=== PATIENT | female | born 1950 | race Caucasian/White ===

== ENCOUNTER → 2016-05-05 | Outpatient (CLI) | payer MEDICARE, OTHER ==
[~2016-05-05] MED LIST: ALEN70SO3 PO; HYDR-3816 PO; LEVO100T7 PO; METF500T4 PO; PRD20T PO; ROSU5TAB PO
--- OUTSIDE RECORDS SUMMARY | 2016-05-05 10:31 | XMS REPORT | Continuity of Care Document ---
Author Author [facility] Organization [facility] Address Unknown Phone Unavailable Care Team Providers Care Slate Mixer Name Role Phone KAILA CORTEZ DO PCP Insurance Providers Payer Name Policy Number Subscriber Name Relationship [facility] [id number] Javad Barr D 01 Problems No known problems or medical conditions. Medications No known medications. Social History Social History Problem Response Recorded Date/Time Recent Foreign Travel No 04/02/2014 10:01am Hospital Discharge Instructions No hospital discharge instructions. Plan of Care No plan of care. Functional Status No functional status results. Allergies, Adverse Reactions, Alerts No known allergies. Immunizations No immunization records. Vital Signs Acute Vital Signs Vital Response Date/Time Height 5 ft 4 in Weight 257 lb Body Mass Index 44.1 kg/m^2 Results No known relevant diagnostic tests, laboratory data and/or discharge summary. Procedures No known history of procedures. Encounters Encounter Location Date/Time Discharged Recurring [facility] 04/28/14 6:00pm
--- NOTE | 2016-05-05 14:42 | Diagnostic Imaging Report ---
EXAMINATION: DEXA scan. INDICATION: Osteopenia TECHNIQUE: Bone mineral density estimated based on dual energy radiography over the lumbar spine and femoral necks, was performed. FINDINGS: The lumbar spine T-score is 0.1. T score over the left femoral neck is 0.6 and over the right is 0.4. IMPRESSION: Bone mineral density within the normal range. Dictated by: Dictated on workstation # [id number]
== END ==
LOC: RAD 10:28
PROVIDERS: ATTEND Family Medicine
DX: M81.0 Age-related osteoporosis without current pathological fracture (principal)
CPT/HCPCS: 77080

== ENCOUNTER 2017-11-06 20:00 | Outpatient (CLI) | payer MEDICARE, OTHER ==
[~2017-11-06 20:00] MED LIST changes: +HYDR-34 PO; -HYDR-3816 PO; -METF500T4 PO; +METF500T5 PO
== END 2017-11-07 06:39 | disposition home or self-care (01) ==
LOC: SLEEP 20:00
PROVIDERS: ATTEND Nurse Practitioner Family
DX: G47.33 Obstructive sleep apnea (adult) (pediatric) (principal)
CPT/HCPCS: 95811

== ENCOUNTER → 2019-01-28 | Outpatient (CLI) | payer MEDICARE, OTHER ==
[~2019-01-28] MED LIST changes: +METF-397 PO; -METF500T5 PO
--- NOTE | 2019-01-28 16:30 | Diagnostic Imaging Report ---
PROCEDURE: US Thyroid. TECHNIQUE: Multiple real-time grayscale images were obtained of the thyroid in various projections. INDICATION: Palpable abnormality. FINDINGS: The right lobe of the thyroid measures 5.3 x 3.4 x 3.7 cm. There is a large heterogeneous nodule on the right measuring 4.2 x 2.9 x 3.2 cm. Left lobe of the thyroid measures 4.5 x 2.2 x 1.9 cm. Largest nodule on the left measures 0.9 x 0.8 cm. Subsequently, there are 0.8 and 0.5 cm nodules as well. IMPRESSION: Dominant nodule in the right lobe of thyroid measuring up to 4.2 cm. Further evaluation with fine-needle aspiration is recommended to exclude malignancy. Dictated by: Dictated on workstation # [id number]
== END ==
LOC: RAD 14:45
PROVIDERS: ATTEND Otolaryngology Otolaryngology/Facial Plastic Surgery
DX: E04.1 Nontoxic single thyroid nodule (principal)
CPT/HCPCS: 76536

== ENCOUNTER → 2019-02-11 | Outpatient (CLI) | payer MEDICARE, OTHER ==
[~2019-02-11] VITALS: Ht 160 cm; Wt 113.6 kg
[~2019-02-11] MED LIST changes: +LIDOCAINE 1% INJ 20 ML 20 ML VIAL INJ ONE; +LIDOCAINE 1% INJ 20 ML 20 ML VIAL ONE
--- NOTE | 2019-02-11 13:55 | Diagnostic Imaging Report ---
INDICATION: Right thyroid nodule. Patient presents for ultrasound-guided fine-needle aspiration. Patient was brought to the procedure room and placed on the table in a supine position. Ultrasound imaging over the right neck was performed to evaluate appropriate entry site. The right neck was then prepped and draped in usual sterile fashion. A small amount of 1% lidocaine was utilized for local anesthesia. A total of four passes were made into the dominant nodule in the right lobe of the thyroid utilizing 25-gauge needles. A fine-needle aspiration technique was performed. Hemostasis was obtained using manual compression. Patient tolerated the procedure well and left the department in stable condition. IMPRESSION: Successful ultrasound-guided fine-needle aspiration of right thyroid nodule. Pathology results are currently pending. Dictated by: Dictated on workstation # [id number]
== END ==
LOC: RAD 11:11
PROVIDERS: ATTEND Otolaryngology Otolaryngology/Facial Plastic Surgery
DX: E04.1 Nontoxic single thyroid nodule (principal)
CPT/HCPCS: 76942; 88173; 88305

== ENCOUNTER → 2020-02-17 | Outpatient (CLI) | payer MEDICARE, OTHER ==
[~2020-02-17] MED LIST changes: -LIDOCAINE 1% INJ 20 ML 20 ML VIAL INJ ONE; -LIDOCAINE 1% INJ 20 ML 20 ML VIAL ONE
== END ==
LOC: CARD 09:12
PROVIDERS: ATTEND Internal Medicine Cardiovascular Disease
DX: E78.2 Mixed hyperlipidemia (principal)
CPT/HCPCS: 93306

== ENCOUNTER → 2020-02-19 | Outpatient (CLI) | payer MEDICARE, OTHER ==
[~2020-02-19] VITALS: Ht 160 cm; Wt 113.0 kg
[~2020-02-19] MED LIST changes: +CATHETER FLUSH 10 ML SYR IV PRN
[2020-02-19 09:27] VITALS: BP 142/82
--- NOTE | 2020-02-19 15:15 | Cardiology Stress Test Report ---
Stress Test Report Date of Procedure/Referring: Date of Procedure: Feb 19, 2020 PCP Nadira Mackenzie MD Admitting Physician Robbin Regalado DO Indications: Coronary artery disease Baseline Heart Rate: 57 Baseline Blood Pressure: Blood Pressure Systolic: 142 Blood Pressure Diastolic: 82 Vital Signs Date Time Temp Pulse Resp B/P (MAP) Pulse Ox O2 Delivery O2 Flow Rate FiO2 02/19/20 09:27 57 142/82 (102) Baseline Vital Signs Vital Signs Date Time Temp Pulse Resp B/P (MAP) Pulse Ox O2 Delivery O2 Flow Rate FiO2 02/19/20 09:27 57 142/82 (102) Baseline EKG: Baseline EKG: normal sinus rhythm Summary: After explaining the procedure and details to the patient, she signed the consent and was brought to the stress nuclear laboratory. Patient exercised on standard Anthony protocol, EKG, heart rate and blood pressure were monitored continuously, resting and stress doses of radio tracer were injected, imaging was acquired and reviewed in the short axis, horizontal long axis and vertical long axis views Patient was able to exercise for a total of 5:15 minutes on Anthony protocol, METs 6.4 Maximum heart rate 129 Maximum blood pressure 211/86 Stress EKG, Minimal nondiagnostic changes Recovery EKG, Return to baseline TID: 0.92 SSS: 11 SDS: 8 EF: 71 Conclusion: 1. Fair exercise tolerance for a total of 5 minutes 15 seconds on standard Anthony protocol achieving 86 percent of maximum expected heart rate, total of 6.4 minutes 2. Severe hypertensive response to exercise with peak blood pressure 211/86 return to baseline during recovery 3. Minimal nondiagnostic EKG changes with exercise returned to baseline during recovery 4. Reversible ischemia involving the whole anterior wall and anterolateral wall neck/5. Normal left ventricular size, EF 71 percent NADIRA MACKENZIE MD Feb 19, 2020 15:15
== END ==
LOC: CARD 08:30
PROVIDERS: ATTEND Internal Medicine Cardiovascular Disease
DX: E78.2 Mixed hyperlipidemia (principal)
CPT/HCPCS: 78452; 93017; A9502

== ENCOUNTER 2020-04-08 07:44 | Day surgery (SDC) | payer MEDICARE, OTHER ==
[~2020-04-08] VITALS: Ht 161 cm; Wt 115.1 kg
[~2020-04-08 07:44] MED LIST changes: -CATHETER FLUSH 10 ML SYR IV PRN
[2020-04-08] MEDS ORDERED: NS IV 1000 ML 1,000 ML ONE (07:46)
[2020-04-08] MEDS ORDERED: LIDOCAINE 1% INJ 20 ML 20 ML VIAL ONE (07:46)
[2020-04-08] MEDS ORDERED: HEParin (CATH LAB) 2,000 ML IV ONE (07:46)
[2020-04-08] MEDS ORDERED: NS IV 1000 ML 1,000 ML IV SCH (08:00)
[2020-04-08 08:13] VITALS: BP 174/81
[2020-04-08 08:18] LABS: HEMOGLOBIN 14.5 g/dL (11.5-16.0); MEAN PLATELET VOLUME 8.9 fL (9.0-12.2); WHITE BLOOD COUNT 8.3 10^3/uL (4.3-11.0)
[2020-04-08 08:30] LABS: BILIRUBIN,URINE NEGATIVE (NEGATIVE); CLARITY,URINE CLEAR; COLOR,URINE YELLOW; GLUCOSE, URINE (UA) NEGATIVE (NEGATIVE); KETONES,URINE NEGATIVE (NEGATIVE); LEUKOCYTE ESTERASE ,URINE NEGATIVE (NEGATIVE); NITRITE,URINE NEGATIVE (NEGATIVE); PROTEIN,URINE NEGATIVE (NEGATIVE)
--- NOTE | 2020-04-08 08:30 | Diagnostic Imaging Report ---
INDICATION: Coronary artery disease Single AP view of the chest is obtained. COMPARISON: No previous study is available for comparison at this time. FINDINGS: Heart size and pulmonary vasculature are within normal limits, and the lungs are clear, bilaterally. There is degenerative spurring at the acromioclavicular joints, greater on the right. IMPRESSION: Unremarkable chest. Dictated by: Dictated on workstation # [id number]
[2020-04-08 08:33] LABS: PROTHROMBIN TIME PATIENT 13.1 SEC (12.2-14.7)
[2020-04-08 08:39] LABS: BACTERIA,URINE FEW /HPF; WBC,URINE RARE /HPF
[2020-04-08 08:55] LABS: ALBUMIN 4.1 GM/DL (3.2-4.5); BILIRUBIN,TOTAL 0.5 MG/DL (0.1-1.0); CALCIUM 9.3 MG/DL (8.5-10.1); CREATININE SERUM 1.01 MG/DL (0.60-1.30); POTASSIUM 3.9 MMOL/L (3.6-5.0); TOTAL PROTEIN 7.8 GM/DL (6.4-8.2)
[2020-04-08] MEDS ORDERED: ALEN70TA69 PO (09:26)
[2020-04-08] MEDS ORDERED: MELO15TA39 PO (09:26)
[2020-04-08] MEDS ORDERED: CHOL100048 PO (09:26)
[2020-04-08] MEDS ORDERED: ASPI-1238 PO (09:26)
[2020-04-08] MEDS ORDERED: METO-351 PO (09:26)
[2020-04-08] MEDS ORDERED: ATOR10TA66 PO (09:26)
[2020-04-08] MEDS ORDERED: LISI10TA2 PO (09:26)
[2020-04-08] MEDS ORDERED: LEVO100T7 PO (09:26)
--- NOTE | 2020-04-08 09:43 | NUR ---
SPOKE WITH THE PT AND CALLED [facility] TO COMPLETE THE MED REC THE FOLLOWING ARE FILL DATES FROM [facility]: 11-04-2019 MELOXICAM 15MG #90/90DS 01-15-2020 METFORMIN 500MG #360/90DS 01-15-2020 ATORVASTATIN 10MG #90/90DS 01-15-2020 LISINOPRIL 10MG #90/90DS 02-06-2020 LEVOTHYROXINE 100MCG #90/90DS 03-17-2020 ALENDRONATE 70MG #4/28DS 03-23-2020 METOPROLOL ER 25MG #30/30DS OTC MEDs: VIT D ASPIRIN 81
[2020-04-08] MEDS ORDERED: VERAPAMIL 5 MG/2 ML (CALAN) VIAL IV ONE (09:47)
[2020-04-08] MEDS ORDERED: NITRO DRIP 25000 MCG/D5W 250 ML IV ONE (09:47)
[2020-04-08] MEDS ORDERED: MIDAZOLAM 5 MG/5 ML (VERSED) VIAL ONE (09:47)
[2020-04-08] MEDS ORDERED: fentaNYL INJECTION 100 MCG/2 ML AMP ONE (09:47)
[2020-04-08] MEDS ORDERED: HEParin 1000 UNIT/ML (10ML VIAL) FOR BOLUS ONE (09:47)
--- NOTE | 2020-04-08 10:07 | Cardiac Procedure Note-CS/ASA ---
Pre-Procedure Note Pre-Op Procedure Note H&P Reviewed The H&P was reviewed, patient examined and no changes noted. Date H&P Reviewed: Apr 08, 2020 Time H&P Reviewed: 10:07 Conscious Sedation Pre-Proced Time 10:07 ASA Score 3 For ASA 3 and 4: Consider anesthesia and medical clearance. Also, for patients with a history of failed moderate sedation consider anesthesia. Airway Lungs Heart ASA score ASA 1: a normal healthy patient ASA 2: a patient with a mild systemic disease (mid diabetes, controlled hypertension, obesity x ASA 3: a patient with a severe systemic disease that limits activity (angina, COPD, prior Myocardial infarction) ASA 4: a patient with an incapacitating disease that is a constant threat to life (CHF, renal failure) ASA 5: a moribund patient not expected to survive 24 hrs. (ruptured aneurysm) ASA 6: a declared brain- patient whose organs are being harvested. For emergent operations, add the letter E after the classification Mallampati Classification Grade 3 Sedation Plan Analgesia, Amnesia, Plan communicated to team members, Discussed options with patient/fam, Discussed risks with patient/fam The patient is an appropriate candidate to undergo the planned procedure, sedation, and anesthesia. The patient immediately re-assessed prior to indication. NADIRA HERNADEZ MD Apr 08, 2020 10:07
[2020-04-08] MEDS ORDERED: TICAGRELOR 90 MG TABLET (BRILINTA) PO ONE (11:02)
[2020-04-08] MEDS ORDERED: ASPIRIN 325 MG (5 GR) TABLET ONE (11:02)
[2020-04-08] MEDS ORDERED: NON-FORMULARY MEDICATION 1 EA EA (Alendronate Sodium 70 MG) PO SCH (11:30)
--- NOTE | 2020-04-08 11:33 | Cardiac Cath Report ---
Cardiac Cath Report Physician (s)/Case Picker (s) Physician NADIRA HERNADEZ MD Pre-Procedure Diagnosis Pre-Procedure Diagnosis: coronary artery disease Post-Procedure Note Procedure Start Date: Apr 08, 2020 Name of Procedure: Left heart catheterization Stent to the circumflex artery Findings/Procedure Note PROCEDURE NOTE: 69-year-old lady with history of hypertension, hyperlipidemia and diabetes mellitus, having chest pain, had an abnormal stress test, scheduled for cardiac catheterization possible PTCA. After explaining the procedure to the patient, all pros and cons were explained, all questions were answered. The patient signed the consent and then she was placed on the cardiac catheterization laboratory. Groin was prepped SL fashion local anesthesia was used. Sheath placed in the right radial artery, Crosby catheter advanced to the left ventricular cavity, pressure was measured, pullback to the aorta, angiogram was done which showed severe stenosis in the circumflex artery, intervention was initiated. Patient received a total of 6000 units of heparin, EBU guide was advanced to the left main coronary artery, BMW wire was advanced to the distal circumflex artery, had 95 percent stenosis in the mid circumflex artery, primary stenting using Eladia 3 x 12 mm, significant resistance was noted in the lesion. I used postdilatation with NC treck 3.5 x 12 mm expanded to 3.4 mm under 10 shine with excellent results At the end of the procedure the sheath was removed. Closure device was used FINDINGS: Hemodynamics LV 149/17, end-diastolic pressure of 17 Aorta 161/74 mean of 109 ANATOMY: Left Main is free of obstructive disease Left Anterior Descending has mild disease nonobstructive disease Left Circumflex has 95 percent stenosis in the midportion with successful primary stenting using Eladia 3 x 12 mm stent expanded to 3.4 mm using a noncompliant balloon Right Coronory Artery is moderate in size with 40-50 percent stenosis proximally nonobstructive disease LV Gram was not done, pressure was measured CONCLUSION: 1. Severe stenosis in the midcircumflex artery with primary stenting using Sier ra 3 x 12 mm expanded to 3.4 mm with excellent results 2. 40-50 percent stenosis in the proximal right coronary artery nonobstructive disease 3. Mild disease in the LAD nonobstructive disease 4. Normal left ventricular end-diastolic pressure DISCUSSION AND RECOMMENDATION: Patient was started on aspirin and Brilinta, hold metformin for the next 48 hours, increase Lipitor to 20 mg daily. Arrange for follow-up as an outpatient Anesthesia Type: Conscious Sedation Estimated blood loss (mL): 30 ml Contrast Amount: 116 ml Total Radiation Dose: 1270 mGy Post-Procedure Diagnosis Post-operative diagnosis: Coronary artery disease Hypertension Hyperlipidemia Diabetes mellitus NADIRA HERNADEZ MD Apr 08, 2020 11:33
[2020-04-08 12:14] VITALS: BP 147/79
[2020-04-08] MEDS: NS IV 1000 ML 1,000 ML IV SCH ×2 (13:47→21:43)
[2020-04-08 15:03] VITALS: BP 131/71
[2020-04-08 16:00] VITALS: BP 131/71
[2020-04-08 20:00] VITALS: BP 165/75
[2020-04-08] MEDS: TICAGRELOR 90 MG TABLET (BRILINTA) PO SCH (21:17)
[2020-04-09] VITALS: BP 154/63
[2020-04-09 03:26] LABS: HEMOGLOBIN 13.1 g/dL (11.5-16.0); MEAN PLATELET VOLUME 9.2 fL (9.0-12.2)
[2020-04-09 03:40] LABS: ALBUMIN 3.6 GM/DL (3.2-4.5); CHLORIDE 110 MMOL/L (98-107); POTASSIUM 3.9 MMOL/L (3.6-5.0); SODIUM 141 MMOL/L (135-145)
[2020-04-09 03:41] LABS: CALCIUM 8.4 MG/DL (8.5-10.1)
[2020-04-09 03:42] LABS: GLUCOSE 140 MG/DL (70-105)
[2020-04-09 03:43] LABS: TOTAL PROTEIN 6.7 GM/DL (6.4-8.2)
[2020-04-09 03:44] LABS: CARBON DIOXIDE 19 MMOL/L (21-32)
[2020-04-09 03:45] LABS: BILIRUBIN,TOTAL 0.4 MG/DL (0.1-1.0)
[2020-04-09 03:46] LABS: ALKALINE PHOSPHATASE 56 U/L (40-136); CREATININE SERUM 0.89 MG/DL (0.60-1.30); GFR ESTIMATED > 60
[2020-04-09 03:47] LABS: BUN/CREATININE RATIO 17
[2020-04-09 03:49] LABS: ALANINE AMINOTRANSFERASE 18 U/L (0-55)
[2020-04-09 04:00] VITALS: BP 159/71
[2020-04-09] MEDS ORDERED: LEVOTHYROXINE 100 MCG (LEVOTHROID) TAB PO SCH (06:30)
[2020-04-09] MEDS ORDERED: TICA90TA PO (06:47)
[2020-04-09] MEDS ORDERED: METF-397 PO (06:47)
[2020-04-09] MEDS ORDERED: ATOR20TA66 PO (06:47)
--- NOTE | 2020-04-09 06:49 | Discharge Inst-Post CATH ---
Discharge Inst-CATH/EP Post Cardiac Cath/EP D/C Inst Follow Up/Plan Hold Metfromin for [address] Mackenzie in 2-4 weeks <b>CARDIAC CATH/EP PROCEDURE DISCHARGE INSTRUCTIONS</b> ACTIVITY * Go Home directly and rest. * Limit activity of the leg (or wrist if it was used) for 7 days including aerobics, swimming, jogging, bicycling, etc. * Restrict stair-climbing for 7 days if possible, if not, climb up with your non-cath leg, then bring together on the same step. * Avoid lifting, pushing, pulling or excessive movement of the affected extremity for 7 days. * Customary sexual activity may be resumed after 2 days-use caution not to use a position that strains or causes pain to the affected extremity. * No driving for 24 hours. * NO SMOKING. * Avoid straining for bowel movements for 7 days. * Gentle walking on level ground is allowed. * Returning to work will depend on the type of procedure and the results. Your doctor will discuss this with you. CALL YOUR DOCTOR FOR ANY OF THE FOLLOWING: *If bleeding from the puncture site occurs- Apply gentle pressure to site with clean cloth and call your doctor or EMS. * If a knot or lump forms under the skin, increases in size, or causes pain. * If bruising appears to be worsening or moving further down your leg instead of disappearing. * Temperature above 101 F. CARE OF YOUR GROIN INCISION; * Bruising or purple discoloration of the skin near the puncture site is common. * You may shower only, no bathtub bathing for 5 days. Be careful to avoid slipping as your leg may feel stiff. * If a closure device was used on your femoral artery, please see the attached guide regarding care of the device and your leg. * Leave dressing on FOR 24 hours. CARE OF YOUR WRIST INCISION; * Bruising or purple discoloration of the skin near the puncture site is common. * You may shower. * DO NOT submerge wrist. * Leave dressing on FOR 24 hours. NADIRA MACKENZIE MD Apr 09, 2020 06:49
[2020-04-09] MEDS: NS IV 1000 ML 1,000 ML IV SCH (06:58)
[2020-04-09] MEDS: TICAGRELOR 90 MG TABLET (BRILINTA) PO SCH (08:15)
[2020-04-09] MEDS ORDERED: lisINopril 10 MG (PRINIVIL) TABLET PO SCH (09:00)
[2020-04-09] MEDS ORDERED: ASPIRIN E.C. 81 MG (ECOTRIN) TAB PO SCH (09:00)
--- NOTE | 2020-04-09 09:25 | Cardiology Progress Note ---
Subjective Date Seen by Provider: Apr 09, 2020 Time Seen by Provider: 09:24 Subjective/Events-last exam patient was seen at bedside, laying down comfortably, denied any chest pain Review of Systems General: No Chills, No Night Sweats, No Fatigue, No Malaise, No Appetite, No Other HEENT: No Head Aches, No Visual Changes, No Eye Pain, No Ear Pain, No Dysphasia, No Sinus Congestion, No Post Nasal Drip, No Sore Throat, No Other Pulmonary: No Dyspnea, No Cough, No Pleuritic Chest Pain, No Other Cardiovascular: No: Chest Pain, Palpitations, Orthopnea, Paroxysmal Noc. Dyspnea, Edema, Lt Headedness, Other Objective-Cardiology Exam Last Set of Vital Signs Vital Signs 04/09/20 04:00 Temp 36.9 Pulse 58 Resp 16 B/P (MAP) 159/71 (100) Pulse Ox 97 O2 Delivery NIV CPAP Capillary Refill : Less Than 3 Seconds I&O Intake and Output 04/09/20 00:00 Intake Total 1150 ml Output Total 1 ml Balance 1149 ml Intake Oral 1150 ml Output Stool Total 1 ml # Voids 5 # Bowel Movements 1 Daily Weight Change No General: Alert, Oriented X3, Cooperative HEENT: Atraumatic, PERRLA Neck: Supple, No JVD, No Thyromegaly Lungs: Clear to Auscultation, Normal Air Movement Heart: Regular Rate, Normal S1, Normal S2, No Murmurs Abdomen: Normal Bowel Sounds, Soft, No Tenderness, No Hepatosplenomegaly, No Masses Extremities: No Clubbing, No Cyanosis, No Edema, Normal Pulses, No Tenderness/Swelling Skin: No Rashes, No Breakdown, No Significant Lesion Neuro: Normal Gait, Normal Speech, Strength at 5/5 X4 Ext, Normal Tone, Sensation Intact Psych/Mental Status: Mental Status NL, Mood NL Results Lab Laboratory Tests 04/09/20 03:17 A/P-Cardiology Admission Diagnosis Coronary artery disease Hypertension Hyperlipidemia Diabetes mellitus Assessment/Plan Coronary artery disease, status post stent to the circumflex artery, site is healing well. No chest pain. Hypertension restarted on oral medication, monitor blood pressure next Hyperlipidemia increase Lipitor to 20 mg daily next Diabetes mellitus, hold metformin for 48 hours NADIRA HERNADEZ MD Apr 09, 2020 09:25
--- NOTE | 2020-04-09 17:23 | NUR ---
Received dietary consult for MST score. Note pt has discharged at this time. Mack Lopez, MS RD LD
== END 2020-04-09 10:30 | disposition home or self-care (01) ==
LOC: CATH 07:44 → CSD 11:32 → CATH 04-09 10:30
PROVIDERS: ATTEND Internal Medicine Cardiovascular Disease
DX: I25.10 Atherosclerotic heart disease of native coronary artery without angina pectoris (principal); I10 Essential (primary) hypertension; E78.5 Hyperlipidemia, unspecified; E11.9 Type 2 diabetes mellitus without complications; E78.2 Mixed hyperlipidemia; R94.39 Abnormal result of other cardiovascular function study; Z79.899 Other long term (current) drug therapy; Z79.82 Long term (current) use of aspirin; Z79.84 Long term (current) use of oral hypoglycemic drugs; Z88.2 Allergy status to sulfonamides; Z91.040 Latex allergy status; Z87.891 Personal history of nicotine dependence
CPT/HCPCS: 71045; 80053 ×2; 80061; 81000; 85027 ×2; 85610; 85730; 87081; 93458; C1725; C1769; C1874; C1887; C1894; C9600; 36415

== ENCOUNTER → 2020-04-24 | Outpatient (CLI) | payer MEDICARE, OTHER ==
[~2020-04-24] MED LIST changes: +ALEN70TA80 PO; +ASPI-1238 PO; +ATOR10TA66 PO; +ATOR20TA66 PO; +CATHETER FLUSH 10 ML SYR IV PRN; +CHOL100048 PO; +HOLD METFORMIN - RECEIVED CONTRAST 20 ML VIAL IV SCH; +IOHEXOL 350 MG/ML 100 ML (OMNIPAQUE 350) VIAL IV ONE; +LISI10TA2 PO; +MELO15TA39 PO; +METO-351 PO; +NS 100 ML (IVPB) BAG IV ONE; +TICA90TA PO
[2020-04-24 08:12] LABS: CREATININE SERUM 0.95 MG/DL (0.60-1.30)
--- NOTE | 2020-04-24 09:50 | Diagnostic Imaging Report ---
PROCEDURE: CT angiography of the head and CT angiography of the neck with and without contrast. TECHNIQUE: Contiguous noncontrast images were obtained from the skull base through the vertex. After intravenous contrast administration, helical CT angiography of the neck was performed. Source data was reformatted into 3D MIP projections. Delayed post contrast acquisition was also obtained. Auto Exposure Controls were utilized during the CT exam to meet ALARA standards for radiation dose reduction. INDICATION: Carotid stenosis. No prior studies are available for comparison. CT angiogram head: Precontrast imaging through the brain demonstrates the ventricles and sulci to be within normal limits. No sulcal effacement or midline shift is identified. No acute intra-axial or extra-axial hemorrhage is detected. Postcontrast delayed imaging through the brain is without evidence of an enhancing lesion. CT angiographic portion of the CT brain study demonstrates distal internal carotid arteries to be patent. There is some calcified plaque in the carotid siphons bilaterally. There appears to be an aneurysm arising from the right middle cerebral artery bifurcation, measuring 4 mm in size. This projects slightly cephalad. Right and left MCAs are widely patent. Bilateral anterior cerebral arteries and anterior communicating artery are patent. Bilateral middle cerebral arteries are patent. Basilar appears patent. No intracranial stenosis is identified. CT angiogram neck: Thre is a three-vessel branching pattern to the aortic arch. The left common carotid artery is widely patent. There is some mild calcified plaque at the left carotid bifurcation but no stenosis is seen. Left internal carotid artery shows some mild tortuosity proximally but appears to be widely patent. The right common carotid artery is patent. There is a large amount of calcified plaque at the right carotid bifurcation, but no high-grade stenosis is seen. Right internal carotid artery is widely patent. The vertebral arteries are codominant and appear widely patent. There is enlargement to the right lobe of the thyroid gland without evidence of discrete mass. IMPRESSION: 1. Bilateral carotid bifurcation plaque. No high-grade stenosis within the common carotid or internal carotid arteries is seen. 2. 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 Dictated by: Dictated on workstation # [id number]
== END ==
LOC: RAD 08:45
PROVIDERS: ATTEND Physician Assistant
DX: I65.23 Occlusion and stenosis of bilateral carotid arteries (principal); I67.1 Cerebral aneurysm, nonruptured
CPT/HCPCS: 36415; 70496; 70498; 82565; 84520

== ENCOUNTER → 2020-07-13 | Outpatient (CLI) | payer MEDICARE, OTHER ==
[~2020-07-13] MED LIST changes: -CATHETER FLUSH 10 ML SYR IV PRN; -HOLD METFORMIN - RECEIVED CONTRAST 20 ML VIAL IV SCH; -IOHEXOL 350 MG/ML 100 ML (OMNIPAQUE 350) VIAL IV ONE; -LISI10TA2 PO; +LISI10TA25 PO; -NS 100 ML (IVPB) BAG IV ONE
--- NOTE | 2020-07-13 13:46 | Diagnostic Imaging Report ---
PROCEDURE: CT abdomen and pelvis without contrast. TECHNIQUE: Multiple contiguous axial images were obtained through the abdomen and pelvis without the use of intravenous contrast. Auto Exposure Controls were utilized during the CT exam to meet ALARA standards for radiation dose reduction. INDICATION: Left flank pain, hematuria. COMPARISON: No relevant comparison. FINDINGS: There is no hydroureteronephrosis. There are no radiopaque ureteral stones. No bladder calculus. The bladder wall is non-thickened. This patient has extensive diverticulosis of the sigmoid colon. The possibility of mild acute diverticulitis could not be excluded. There is, however, no abscess, obstruction, or perforation and no free air. The air-containing appendix is normal. There is a tiny fatty umbilical hernia. The uterus and adnexa appear unremarkable. The unopacified liver, gallbladder, bile ducts, spleen, adrenals, and pancreas are unremarkable. The aorta is atherosclerotic but nonaneurysmal. IMPRESSION: 1. Unobstructed nonfocal and nonacute appearing urinary tracts. 2. Severe diverticulosis, mild uncomplicated diverticulitis could not be excluded. No abscess, obstruction, or perforation. 3. No other potential acute appearing abnormality. Dictated by: Dictated on workstation # [id number]
== END ==
LOC: RAD 12:37
PROVIDERS: ATTEND Family Medicine
DX: K57.30 Diverticulosis of large intestine without perforation or abscess without bleeding (principal)
CPT/HCPCS: 74176

== ENCOUNTER → 2021-12-10 | Outpatient (CLI) | payer MEDICARE, OTHER ==
[~2021-12-10] MED LIST changes: -ALEN70SO3 PO; +ALEN70SO4 PO; +CATHETER FLUSH 10 ML SYR IV PRN; +HOLD METFORMIN - RECEIVED CONTRAST 20 ML VIAL IV SCH; +IOHEXOL 350 MG/ML 100 ML (OMNIPAQUE 350) VIAL IV ONE; +NS 100 ML (IVPB) BAG IV ONE
[2021-12-10 07:22] LABS: CREATININE SERUM 0.94 MG/DL (0.60-1.30)
--- NOTE | 2021-12-10 08:52 | Diagnostic Imaging Report ---
PROCEDURE: CT chest with contrast only. TECHNIQUE: Multiple contiguous axial images were obtained through the chest after administration of intravenous contrast. Auto Exposure Controls were utilized during the CT exam to meet ALARA standards for radiation dose reduction. INDICATION: Right upper lobe lung nodule. We were ask to follow-up of pulmonary nodule but I see no reference to a pulmonary nodule in any prior report. There is no previous chest CT. It is correlated with overlapped images obtained at abdominal CT 07/13/[address] angioneck 04/24/2020. Chest x-ray is most recently performed in March 2020, as well. FINDINGS: There is no suspicious lung mass. No spiculated lesion. There is a minute subpleural nodule right upper lobe outside the syhhp-on-yman of any previous studies and measuring 3 mm and requires no further workup. There is no axillary, hilar or mediastinal lymphadenopathy. There are no findings of pneumonia or edema. No suspicious bony lesion. The aorta is nonaneurysmal. There is no pleural or pericardial effusion. No chest wall pathology. This are coronary artery atherosclerotic vascular calcifications. Upper abdomen showed no acute or suspicious abnormality. IMPRESSION: No acute or suspicious abnormality. Incidental minute 3 mm subpleural nodule, right upper lobe, is noted as a benign finding. Dictated by: Dictated on workstation # [id number]
== END ==
LOC: RAD 06:44
PROVIDERS: ATTEND Family Medicine
DX: R91.1 Solitary pulmonary nodule (principal)
CPT/HCPCS: 36415; 71260; 82565; 84520